=== PATIENT | female | born 1975 | race Caucasian/White ===

== ENCOUNTER 2024-01-28 11:34 | Emergency (ER) | payer OTHER, SELFPAY ==
[2024-01-28 12:05] VITALS: BP 158/88; PULSE 119; RESP 20; TEMP 36.7; O2SAT 99; BMI 21.4
--- NOTE | 2024-01-28 12:17 | EXP.UTC ---
Discharge Plan Disposition Patient Disposition: Home, Self-Care Condition: Good Prescriptions Prescriptions: New methocarbamol 500 mg tablet 500 mg PO TID PRN (Reason: muscle spasm) Qty: 15 0RF etodolac 200 mg capsule 200 mg PO Q8H PRN (Reason: pain) Qty: 20 0RF Referrals Follow up/Referrals: Alicia Conner DO [Staff Physician] - See instructions Bam Jolly MD [Staff Physician] - See instructions Claudia Ross DO [Staff Physician] - See instructions Provider,MD Isreal [Primary Care Provider] - See instructions Activity Restrictions/Add. Instructions Additional Instructions/Restrictions: *Etodolac jeanette 8 hours with meal as needed for pain/inflammation *Not additional anti-inflammatory like Ibuprofen, motrin, aleve, advil with the above amount of Etodolac. You can still take Tylenol every 4 hours as needed if you need something else for pain *moist heat every 20 minutes 3-4 times a day to affected area *Muscle relaxer every 8 hours as needed for muscle spasms but remember, it WILL cause drowsiness You cannot take it and drive, operate machinery or care for small children. *Keep this area active, no movement leads to more stiffness, However take it easy and avoid heavy lifting pushing or pulling *Follow up with you family doctor if no improvement for further treatment and testing Clinical Impressions Clinical Impression: Low back pain Instructions Patient Instructions: Low Back Pain, DI for Low Back Pain Discharge ED Provider: Marion Templeton [facility] General Stated complaint: lower back pain possible kidney pain Time Seen by Provider: 01/28/24 12:18 History of Present Illness Provider Complaint: Patient states that she has been having achy like feeling in her lower back for several days that is worse with movement States at times feels like it moves to the front and is uncomfortable states that she thought it would get better as she has had something similar before and it got better after a few days but she was worried she may have a UTI or something so she came in to get her urine checked States that she did work out over the weekend but doesnt recall hurting her back and denies loss of control of bowel or bladder Related Data Previous Rx's Medication Instructions Recorded etodolac 200 mg capsule 200 mg PO Q8H PRN pain #20 caps 01/28/24 methocarbamol 500 mg tablet 500 mg PO TID PRN muscle spasm #15 01/28/24 tabs Allergies Allergy/AdvReac Type Severity Reaction Status Date / Time No Known Allergies Allergy Verified 01/28/24 12:21 [facility] Disclaimer: The information contained in this section may have been updated after the patient was seen, as this information can be updated by other users. Surgical History (Updated 01/28/24 @ 12:21 by Sarita Bess RN) Hx of hernia repair History of tubal ligation Social History Smoking Status: Unknown if ever smoked alcohol intake: never current occupational status: employed Travel in the last 8 weeks: None ROS Obtained: Yes All systems reviewed & no additional complaints except as documented and Yes Systems reviewed as appropriate & no additional complaints except as documented Constitutional Constitutional: Reports system reviewed and no additional complaints, except as documented, Reports as per HPI, Denies body ache, Denies chills and Denies fever(s) ENT Ears, Nose, Mouth, and Throat: Reports system reviewed and no additional complaints, except as documented and Reports as per HPI Cardiovascular Cardiovascular: Reports system reviewed and no additional complaints, except as documented and Reports as per HPI Respiratory Respiratory: Reports system reviewed and no additional complaints, except as documented and Reports as per HPI Gastrointestinal Gastrointestingal: Reports system reviewed and no additional complaints, except as documented and as per HPI Genitourinary Female Genitourinary: Reports system reviewed and no additional complaints, except as documented, Reports as per HPI, Denies dysuria, Denies urinary frequency and Denies urinary urgency Musculoskeletal Musculoskeletal: Reports system reviewed and no additional complaints, except as documented, Reports as per HPI and Reports back pain (low back pain that goes into pelvis area at times with movement) Physical Exam General General appearance: alert and in no apparent distress ENT ENT exam: Present mucous membranes moist Respiratory Respiratory exam: Present normal lung sounds bilaterally; Absent respiratory distress or wheezes Cardiovascular Cardiovascular exam: Present regular rate, normal rhythm and normal heart sounds Abdominal Exam Abdominal exam: Present soft and normal bowel sounds; Absent distention or tenderness Back Exam Back exam: Present tenderness and muscle spasm Back 1 view image: 1. reports achy like feeling that is worse with movement Denies loss of control of bowel or bladder Neurological Exam Neurological exam: Present alert, oriented X3 and normal gait Medical Decision Making Jann Inquiry Pt receiving controlled substance: No Jann was queried for this patient: No Lab Data Lab results reviewed: Yes I reviewed the patient's lab results. Medical Decision Narrative: Discussed xray of Lspine and/or transfer to the ED, patient declined will start on muscle relaxers and have patient follow up with PCP and OB if pain persists
[2024-01-28 12:29] VITALS: BP 158/88; PULSE 119; RESP 20; TEMP 36.7; O2SAT 99
[2024-01-28 12:33] LABS: Apearance,Urine Clear (Clear); Color,Urine Yellow (Yellow)
[2024-01-28 12:34] LABS: Bilirubin,Urine Negative (Negative); Blood, Urine 1+ (Negative); Glucose,Urine (UA) Negative (Negative); Ketones,Urine Negative (Negative); Protein,Urine Negative (Negative); UTC Leukocyte Esterase,Urine Negative (Negative); UTC Nitrate,Urine Negative (Negative); Urobilinogen,Urine 0.2 EU/dl (0.2)
== END 2024-01-28 12:34 | disposition home or self-care (01) ==
PROVIDERS: Emergency Provider Nurse Practitioner
DX: M54.50 Low back pain, unspecified (principal)
CPT/HCPCS: 81003; 87086; 99204; 99212; G0463

== ENCOUNTER 2024-02-23 16:18 | Outpatient (CLI) | payer OTHER, SELFPAY ==
--- NOTE | 2024-02-23 16:19 | MM_ITS ---
PROCEDURE INFORMATION: Exam: Bilateral Screening 3D Mammography Exam date and time: 02/23/2024 4:06 PM Age: 48 years old Clinical indication: Screening mammogram; Additional info: Routine screening mammogram TECHNIQUE: Imaging protocol: Bilateral Screening tomosynthesis and 2D mammography including computer-aided detection (CAD) when performed. COMPARISON: 3D NOAH SCREEN BILATERAL W WO CAD 12/06/2021 2:43 PM FINDINGS: MAMMOGRAPHY: Breast composition: The breast is heterogeneously dense, which may obscure small masses. Mass: 0.8 cm mass within the upper inner right middle 1/3 should be further assessed with spot views in CC/MLO projection. Ultrasound may also be required. Architectural distortion: No new or suspicious architectural distortion. Calcifications: No new or suspicious calcifications are present Asymmetric density: No new or suspicious asymmetric density is present Skin thickening: None. Axillary adenopathy: None. Implants: Subpectoral saline augmentation implants are present. IMPRESSION: 0.8 cm mass within the upper inner right middle 1/3 should be further assessed with spot views in CC/MLO projection. Ultrasound may also be required. ASSESSMENT: BI-RADS category 0: Incomplete-need additional imaging evaluation
== END 2024-02-23 23:59 | disposition home or self-care (01) ==
LOC: RAD 16:19
PROVIDERS: PCP Obstetrics & Gynecology; Visit Provider Obstetrics & Gynecology
DX: Z12.31 Encounter for screening mammogram for malignant neoplasm of breast (principal)
CPT/HCPCS: 77063; 77067

== ENCOUNTER 2024-03-17 13:55 | Outpatient (CLI) | payer OTHER, SELFPAY ==
--- NOTE | 2024-03-17 13:58 | US_ITS ---
PROCEDURE INFORMATION: Exam: US Right Breast, Complete MG Right Diagnostic Breast Tomosynthesis Exam date and time: 03/17/2024 1:51 PM Age: 48 years old Clinical indication: Patient recalled on the basis of a screening mammogram for further evaluation; Right breast; mass TECHNIQUE: Imaging protocol: Complete ultrasound of all four quadrants of the right breast and the retroareolar regions, including ultrasound of the axilla when performed. Right Diagnostic tomosynthesis and 2D mammography including computer-aided detection (CAD) when performed. Unilateral or bilateral exam. COMPARISON: MG MM DIG SC MAMM IMPLANT BI CAD 02/23/2024 4:06 PM FINDINGS: MAMMOGRAPHY: Breast composition: The breast is heterogeneouly dense, which may obscure small masses (based on the most recent screening mammogram report). Breast mammogram findings: Digital diagnostic spot compression views of the right breast and 90 degree lateral view of the right breast demonstrate a persistent 0.8 cm ovoid mass ULTRASOUND: Breast ultrasound findings: Sonographic images of the right breast including the retroareolar region, all 4 quadrants and the axilla do not demonstrate any solid masses. Scattered cysts are present including a 0.9 cm cyst in the 2 o'clock axis 2 cm from the nipple mass present corresponding to the mass on mammography. Intact implant. Cursors were placed over normal fibroglandular structures in the 11 o'clock axis 5 cm from the nipple. No architectural distortion or acoustical shadowing. No skin thickening or axillary adenopathy. IMPRESSION: Mass on screening mammography corresponds to underlying cystic change sonographically. There is no mammographic evidence of malignancy.Annual bilateral mammographic screening is recommended unless otherwise clinically indicated. ASSESSMENT: BI-RADS Category 2: Benign.
== END 2024-03-17 23:59 | disposition home or self-care (01) ==
LOC: RAD 13:55
PROVIDERS: Visit Provider Obstetrics & Gynecology
DX: R92.8 Other abnormal and inconclusive findings on diagnostic imaging of breast (principal); Z80.3 Family history of malignant neoplasm of breast; N63.0 Unspecified lump in unspecified breast
CPT/HCPCS: 76641; 77061; 77065; G0279

== ENCOUNTER 2024-05-04 16:21 | Emergency (ER) | payer OTHER, SELFPAY ==
[2024-05-04 16:30] VITALS: BP 137/92; PULSE 70; RESP 18; TEMP 36.6; O2SAT 99; BMI 20.9
--- NOTE | 2024-05-04 16:32 | EXP.UTC ---
Discharge Plan Disposition Patient Disposition: Home, Self-Care Condition: Good Prescriptions Prescriptions: New ibuprofen 600 mg tablet 600 mg PO Q6HP PRN (Reason: Mild Pain) Qty: 30 0RF Referrals Follow up/Referrals: Provider,Referral, MD [Primary Care Provider] - See instructions Tejal Miranda DPM [Staff Physician] - See instructions Activity Restrictions/Add. Instructions Additional Instructions/Restrictions: Rest the extremity, Elevate the extremity as tolerated while you are resting. Take tylenol or ibuprofen for pain. I sent in a prescription to your pharmacy. Follow up with Dr. Miranda (podiatry). I put in a referral but you need to call her office and schedule an appointment. Follow up with your regular doctor. GO TO THE ER FOR ANY WORSENING SYMPTOMS Clinical Impressions Clinical Impression: Left foot pain, Ganglion cyst of left foot Instructions Patient Instructions: DI Ganglion Cyst Discharge ED Provider: [place] Brew[place] [facility] [place] General Stated complaint: LT foot pain Time Seen by Provider: 05/04/24 16:32 History of Present Illness Provider Complaint: She states that she has been having worsening pain in the arch of her left foot for the past 1 week. She denies any injury. She states that she has a lump at the area where she has the pain. She came in today because she doesn't have a pcp and she needs a referral to podiatry. Related Data Previous Rx's Medication Instructions Recorded ibuprofen 600 mg tablet 600 mg PO Q6HP PRN Mild Pain #30 05/04/24 tabs Allergies Allergy/AdvReac Type Severity Reaction Status Date / Time No Known Allergies Allergy Verified 05/04/24 16:34 [facility] Disclaimer: The information contained in this section may have been updated after the patient was seen, as this information can be updated by other users. Medical History (Updated 05/04/24 @ 16:56 by Brandon Brewer APRN) Family history of breast cancer in first degree relative Bone spur Surgical History Hx of hernia repair History of tubal ligation Family History Other Alcoholism Cancer Diabetes Heart attack Hyperlipidemia Hypertension Kidney disease Social History Smoking Status: Never smoker alcohol intake: current substance use type: denies use current occupational status: employed Travel in the last 8 weeks: None ROS Obtained: Yes All systems reviewed & no additional complaints except as documented Constitutional Constitutional: Denies chills and Denies fever(s) Eyes Eyes: Denies eye discharge ENT Ears, Nose, Mouth, and Throat: Denies dizziness, Denies otalgia and Denies sore throat Cardiovascular Cardiovascular: Denies chest pain Respiratory Respiratory: Denies shortness of breath, Denies chest congestion, Denies cough, Denies stridor and Denies wheezing Gastrointestinal Gastrointestingal: Denies nausea or vomiting Musculoskeletal Musculoskeletal: Reports as per HPI Integumentary/Breasts Skin/Breast: Denies rash Neurologic Neurologic: Denies dizziness and Denies paresthesias Allergic/Immunologic Allergic/Immunologic: Denies wheezing Physical Exam General General appearance: alert and in no apparent distress Head Head exam: atraumatic, normocephalic and normal inspection Eye Eye exam: Present normal appearance, PERRL and EOMI ENT ENT exam: Present normal exam, normal oropharynx, mucous membranes moist, TM's normal bilaterally and normal external ear exam Neck Neck exam: Present normal inspection, full ROM and trachea midline; Absent meningismus or lymphadenopathy Chest Chest inspection: Present normal inspection and symmetric chest wall rise; Absent tenderness Respiratory Respiratory exam: Present normal lung sounds bilaterally; Absent respiratory distress Cardiovascular Cardiovascular exam: Present regular rate and normal rhythm; Absent JVD Abdominal Exam Abdominal exam: Present soft and normal bowel sounds; Absent distention, tenderness or guarding Extremities Exam Extremities exam: Present normal capillary refill; Absent calf tenderness Expanded Lower Extremity Exam Left: Ankle exam: Present normal inspection and full ROM; Absent tenderness, tenderness over talofibular lig or anterior draw sign Foot/toe exam: Present full ROM and tenderness; Absent swelling, abrasion, laceration, ecchymosis, deformity, crepitus, dislocation, erythema, amputation, puncture wound, foreign body, calcaneal tenderness, tenderness at base of 5th metatarsal, nail avulsion or subungual hematoma Neurovascular/Tendon exam: Present normal capillary refill, normal 2-point discrimination and normal fine/light touch; Absent pulse deficit, motor deficit, sensory deficit, tendon deficit, extremity cold to touch or pallor Gait: observed and normal Back Exam Back exam: Present normal inspection; Absent tenderness Neurological Exam Neurological exam: Present alert and oriented X3 Psychiatric Psychiatric exam: Present normal affect and normal mood Skin Skin exam: Present warm, dry, intact and normal color Lymphatic Lymphatic Findings: no adenopathy Medical Decision Making Medical Records Medical records reviewed: No I reviewed the patient's medical records. Jann Inquiry Pt receiving controlled substance: No
[2024-05-04 16:59] VITALS: BP 137/92; PULSE 70; RESP 18; TEMP 36.6; O2SAT 99
== END 2024-05-04 16:59 | disposition home or self-care (01) ==
PROVIDERS: Emergency Provider Nurse Practitioner Family
DX: M79.672 Pain in left foot (principal); M67.472 Ganglion, left ankle and foot
CPT/HCPCS: 99212; 99214; G0463

== ENCOUNTER 2024-05-26 16:16 | Outpatient (CLI) | payer OTHER, SELFPAY ==
--- NOTE | 2024-05-26 16:21 | XR_ITS ---
FINAL REPORT CLINICAL HISTORY: foot pain COMPARISON: None FINDINGS: RIGHT FOOT 3 views of the right foot were obtained. There is no acute fracture or dislocation. There is mild degenerative change of the 1st MTP joint.. Soft tissues are unremarkable. IMPRESSION: Mild degenerative change without acute bony abnormality. Reviewed, Interpreted and Dictated by Jeff Hammond III, MD Transcribed by Tiara Shi Authenticated and [facility]
--- NOTE | 2024-05-26 16:21 | XR_ITS ---
FINAL REPORT CLINICAL HISTORY: ganglion cyst/foot pain COMPARISON: None FINDINGS: LEFT FOOT Three views of the left foot demonstrate no acute fracture or dislocation. There is mild degenerative change of the 1st MTP joint. The soft tissues are unremarkable. IMPRESSION: Mild degenerative change without acute bony abnormality. Reviewed, Interpreted and Dictated by Jeff Hammond III, MD Transcribed by Tiara Shi Authenticated and . [facility]
== END 2024-05-26 23:59 | disposition home or self-care (01) ==
LOC: RAD 16:18
DX: M79.671 Pain in right foot (principal)
CPT/HCPCS: 73630

== ENCOUNTER 2024-06-22 16:55 | Outpatient (CLI) | payer OTHER, SELFPAY ==
--- NOTE | 2024-06-22 17:04 | MR_ITS ---
PROCEDURE INFORMATION: Exam: MR Left Lower Extremity Other Than Joint Without and With Contrast; Foot Exam date and time: 06/22/2024 5:09 PM Age: 48 years old Clinical indication: Other: St mass; Additional info: Cyst/ soft tissue mass of left foot marked with marker TECHNIQUE: Imaging protocol: Magnetic resonance imaging of the left lower extremity without and with contrast. Exam focused on the foot. Contrast material: PROHACNE; Contrast volume: 10 ml; Contrast route: IV; COMPARISON: CR XR FOOT WT BEARING LT 3V 05/26/2024 4:22 PM FINDINGS: Bones/joints: Small amount of joint fluid as well as 8 mm synovial cyst noted at the 1st metatarsophalangeal joint. No significant arthritic changes. Osseous alignment is normal. No focal osseous lesion identified. LIGAMENTS: Lisfranc ligament: Unremarkable. No evidence of tear. TENDONS: Flexor tendons of foot: Unremarkable. No evidence of tear. Tibialis posterior tendon: Unremarkable as visualized. Peroneal tendons: Unremarkable as visualized. Extensor tendons of foot: Unremarkable. No evidence of tear. Tibialis anterior tendon: Unremarkable as visualized. Tarsal canal (Sinus tarsi): Unremarkable. Tarsal tunnel: Unremarkable. Soft tissues: Unremarkable. Specifically, no abnormality seen in the area indicated by the marker in the arch of the foot. Plantar fascia: Unremarkable as visualized. IMPRESSION: Small amount of joint fluid and small synovial cyst noted in the 1st metatarsophalangeal joint without significant arthritic change. Otherwise unremarkable MRI of the left foot.
== END 2024-06-22 23:59 | disposition home or self-care (01) ==
LOC: RAD 16:57
PROVIDERS: Visit Provider Podiatrist
DX: R22.42 Localized swelling, mass and lump, left lower limb (principal); M67.472 Ganglion, left ankle and foot; M79.672 Pain in left foot
CPT/HCPCS: 73720; A9576

== ENCOUNTER 2024-07-06 16:53 | Outpatient (CLI) | payer OTHER, SELFPAY ==
[2024-07-06 17:18] LABS: Basophils # 0.1 K/mm3 (0-0.2); Basophils % 0.8 % (0.1-2.0); Eosinophils % 0.6 % (0.1-12.0); Hematocrit 39.2 % (37.0-47.0); Hemoglobin 12.6 g/dL (12.2-16.2); Lymphocytes # 1.9 K/mm3 (0.7-4.5); Lymphocytes % 27.2 % (10-50); Mean Corpuscular HGB Conc 32.1 g/dL (31.8-35.4); Mean Corpuscular Hemoglobin 31.3 pg (27.0-31.2); Mean Corpuscular Volume 97.5 fl (81-99); Mean Platelet Volume 7.5 fl (7.4-10.4); Monocytes # 0.3 K/mm3 (0.1-1.0); Monocytes % 4.5 % (1.7-9.3); Neutrophils # 4.6 K/mm3 (1.8-7.8); Neutrophils % 66.9 % (37.0-80.0); Platelet Count 375 K/mm3 (142-424); Red Blood Count 4.02 M/mm3 (4.20-5.40); Red Cell Distribution Width 13.8 % (11.5-17.5); White Blood Count 6.8 K/mm3 (4.8-10.8)
[2024-07-06 17:48] LABS: Albumin Level 4.8 g/dl (3.5-5.0); Chloride 106 mmol/L (98-107); Potassium 4.2 mmoL/L (3.5-5.1); Sodium 139 mmol/L (136-145)
[2024-07-06 17:51] LABS: Alanine Aminotransferase 22 U/L (12-78); Albumin/Globulin Ratio 1.7 (1.1-1.8); Alkaline Phosphatase 59 U/L (38-126); Anion Gap 9.2 mEq/L (5-15); Aspartate Amino Transferase 33 U/L (14-36); Bilirubin,Total 0.7 mg/dl (0.2-1.3); Blood Urea Nitrogen 21 mg/dl (7-17); Calcium 9.5 mg/dl (8.4-10.2); Carbon Dioxide 28 mmol/L (22.0-30.0); Estimated Glomerular Filt Rate 76 ml/min (>60); GFR (African American) 92 ML/MIN (>60); Globulin 2.9 g/dL (1.3-3.2); Glucose 102 mg/dl (74-100); Total Protein,Serum 7.7 g/dl (6.3-8.2)
[2024-07-18 06:43] LABS: 1,25 Dihydroxy Vitamin D 41 pg/mL (.); 1,25-Dihydroxy, Vitamin D-2 <10 pg/mL (.); 1,25-Dihydroxy, Vitamin D-3 40 pg/mL (.)
== END 2024-07-06 23:59 | disposition home or self-care (01) ==
LOC: LAB 16:54
PROVIDERS: Visit Provider Podiatrist
DX: Z01.818 Encounter for other preprocedural examination (principal); M79.672 Pain in left foot
CPT/HCPCS: 80053; 82652; 85025

== ENCOUNTER 2024-07-15 13:46 | Outpatient (CLI) | payer OTHER, SELFPAY ==
--- NOTE | 2024-07-15 13:48 | ECG_ITS ---
APPROVED REPORT Exam: Resting ECG HR:92 bpm ECG Measurements Heart Rate 92 AXES RI 178 P 52 QRSd 67 QRS 18 QT 336 T 70 QTc 385 Conclusion SINUS RHYTHM WITH SINUS ARRHYTHMIA NONSPECIFIC ST & T-WAVE ABNORMALITY BORDERLINE ECG UNCONFIRMED REPORT Electronically signed by : Chema Landa MD 07/17/2024 08:48:04
== END 2024-07-15 23:59 | disposition home or self-care (01) ==
LOC: RT 13:48
PROVIDERS: Visit Provider Podiatrist
DX: Z01.818 Encounter for other preprocedural examination (principal)
CPT/HCPCS: 93005

== ENCOUNTER 2024-07-21 09:50 | Outpatient (CLI) | payer OTHER, SELFPAY ==
[2024-07-21 10:10] LABS: Basophils # 0.1 K/mm3 (0-0.2); Basophils % 1.2 % (0.1-2.0); Eosinophils # 0.1 K/mm3 (0.0-0.4); Eosinophils % 1.8 % (0.1-12.0); Hemoglobin 13.7 g/dL (12.2-16.2); Lymphocytes % 28.2 % (10-50); Mean Corpuscular HGB Conc 32.6 g/dL (31.8-35.4); Mean Corpuscular Hemoglobin 31.4 pg (27.0-31.2); Mean Corpuscular Volume 96.5 fl (81-99); Mean Platelet Volume 7.6 fl (7.4-10.4); Monocytes # 0.3 K/mm3 (0.1-1.0); Monocytes % 4.5 % (1.7-9.3); Neutrophils # 4.5 K/mm3 (1.8-7.8); Neutrophils % 64.3 % (37.0-80.0); Platelet Count 425 K/mm3 (142-424); Red Blood Count 4.36 M/mm3 (4.20-5.40); Red Cell Distribution Width 13.6 % (11.5-17.5); White Blood Count 7.1 K/mm3 (4.8-10.8)
[2024-07-21 11:33] LABS: Albumin Level 5.1 g/dl (3.5-5.0); Chloride 102 mmol/L (98-107)
[2024-07-21 11:34] LABS: Potassium 4.3 mmoL/L (3.5-5.1); Sodium 138 mmol/L (136-145)
[2024-07-21 11:36] LABS: Alanine Aminotransferase 25 U/L (12-78); Anion Gap 12.3 mEq/L (5-15); Aspartate Amino Transferase 34 U/L (14-36); Bilirubin,Unconjugated 0.6 mg/dL (0.0-1.1); Blood Urea Nitrogen 20 mg/dl (7-17); Carbon Dioxide 28 mmol/L (22.0-30.0); Cholesterol 246 mg/dl (140-200); Estimated Glomerular Filt Rate 76 ml/min (>60); GFR (African American) 92 ML/MIN (>60); Total Protein,Serum 8.2 g/dl (6.3-8.2); Triglycerides 57 mg/dl (30-150); VLDL Cholesterol 11 mg/dL (0-40)
[2024-07-21 11:37] LABS: Alkaline Phosphatase 59 U/L (38-126); Bilirubin,Direct 0.3 mg/dl (0.0-0.4); Bilirubin,Indirect 0.6 mg/dL (0.0-0.9); Bilirubin,Total 0.9 mg/dl (0.2-1.3); Calcium 10.1 mg/dl (8.4-10.2); Chol/HDL Ratio 2.4 (1-3.5); Glucose 116 mg/dl (74-100); HDL Cholesterol 103 mg/dl (40-60)
[2024-07-21 11:48] LABS: Direct LDL Cholesterol 99.44 mg/dL (100-129)
[2024-07-21 11:52] LABS: Free T4 (Free Thyroxine) 1.18 ng/dl (0.78-2.19)
[2024-07-21 12:08] LABS: Thyroid Stimulating Hormone 0.97 uIU/mL (0.465-4.68)
== END 2024-07-21 23:59 | disposition home or self-care (01) ==
LOC: LAB 09:51
PROVIDERS: Visit Provider Nurse Practitioner Family
DX: R93.1 Abnormal findings on diagnostic imaging of heart and coronary circulation (principal); R94.39 Abnormal result of other cardiovascular function study; Z01.810 Encounter for preprocedural cardiovascular examination; R94.31 Abnormal electrocardiogram [ECG] [EKG]; K21.9 Gastro-esophageal reflux disease without esophagitis; R00.0 Tachycardia, unspecified; I42.8 Other cardiomyopathies; R06.00 Dyspnea, unspecified
CPT/HCPCS: 36415; 80048; 80061; 80076; 84439; 84443; 85025

== ENCOUNTER 2024-07-23 07:14 | Day surgery (SDC) | payer OTHER, SELFPAY ==
[2024-07-23] VITALS (9 sets, daily range): BP systolic 93–129; BP diastolic 62–86; PULSE 65–99; RESP 18–20; O2SAT 96–100; BMI 20.6
--- NOTE | 2024-07-23 06:51 | IR_ITS ---
APPROVED REPORT Patient Location: Outpatient Tail Ripper: TAMERA [facility] RT (R) PROCEDURES Left heart catheterization Left ventriculogram Selective coronary angiogram INDICATION High risk abnormal Myoview Informed consent was obtained prior to the procedure. COMPLICATIONS NONE Estimated Blood Loss: LESS THAN 10 ML TECHNIQUE One percent lidocaine used to anesthetize the right anterior aspect of the wrist. The right radial artery was accessed via the Seldinger technique. A 6 Mont[place]grin sheath was placed in the right radial artery. 2.5 mg of Verapamil, 800 mcg of nitroglycerin, 1mg Lidocaine and 5000 U Heparin were given through the arterial sheath. The papa catheter was also used to perform left heart catheterization, left ventriculogram and selective coronary angiogram. At the end of the procedure the sheath was removed good hemostasis was achieved using Traclet band, patient was transferred to the postop holding area in stable condition. ANGIOGRAPHIC RESULTS The left anterior descending artery Originates in the left coronary cusp and is angiographically normal The circumflex artery Originates in the left coronary cusp is large caliber and normal The right coronary artery Originates in the right coronary cusp is a large-caliber dominant and normal The WISDOM ventriculogram reveals Slight left ventricular dilatation with globally hypokinetic ejection fraction estimated at 40 to 45% The left ventricular end-diastolic pressure 20 mmHg IMPRESSION Normal coronary arteries as described above Unusual calcification within the cardiac silhouette suggesting possible pericardial calcification or unusual coronary sinus calcification Dilated ventricle with reduced ejection fraction Borderline elevated LVEDP PLAN 1. Recommend cardiac MRI with possible CCTA to better evaluate reduced ejection fraction and unusual calcification which could suggest constrictive pericarditis or other pericardial disease Electronically signed by : Artie Santos MD 07/23/2024 08:37:11
[2024-07-23] MEDS: FENTANYL 100MCG/2ML VIAL 50 MCG IV (08:01)
[2024-07-23] MEDS: LIDOCAINE 1% 10ML MDV 20 ML IJ (08:02)
[2024-07-23] MEDS: HEPARIN 1,000 UNITS/ML 10ML VIAL (CATH LAB) 10000 UNIT IV (08:02)
[2024-07-23] MEDS: VERAPAMIL 2.5MG/ML 2ML VIAL 2.5 MG IV (08:02)
[2024-07-23] MEDS: 0.9 % SODIUM CHLORIDE 500 ML 25 ML IV (08:04)
[2024-07-23] MEDS: diphenhydrAMINE 50MG/ML VIAL 50 MG IV (08:04)
[2024-07-23] MEDS: HEPARIN 1,000 UNITS/500ML NS (CATH LAB) 3000 UNIT IV (08:05)
== END 2024-07-23 10:45 | disposition home or self-care (01) ==
PROVIDERS: Visit Provider Internal Medicine
DX: I42.8 Other cardiomyopathies (principal); R93.1 Abnormal findings on diagnostic imaging of heart and coronary circulation; R94.39 Abnormal result of other cardiovascular function study; R94.31 Abnormal electrocardiogram [ECG] [EKG]
CPT/HCPCS: 93458; 99152; C1725; C1769; J1200; J1644; J3010

== ENCOUNTER 2024-08-11 09:57 | Outpatient (CLI) | payer OTHER, SELFPAY ==
--- NOTE | 2024-08-11 09:57 | MR_ITS ---
APPROVED REPORT Edge Grinder Machine: CLINICAL INDICATION Evaluation for myocardial or pericardial masses, possible calcified mass noted on [facility] TECHNIQUE Image Acquisition: Cardiac magnetic resonance (CMR) was performed on Siemens Espree MRI 1.5T scanner. Software platform sequences were performed using the Siemens TinyTapo MR B19 platform. A set of three-plane, low-resolution, large [id number] localizers were initially acquired. Then axial, coronal, sagittal TrueFISP, as well as axial HASTE images, were obtained. These were followed by gated TrueFISP breathold cinematic sequences obtained in the short axis with 8 mm slices and 2 mm gaps, 2-chamber (vertical long axis), 3-chamber, 4-chamber (horizontal long axis). A bolus of contrast was injected intravenously with first-pass sequences obtained in the short axis and four-chamber planes. After approximately 10 minutes, a TI cnc mechanic sequence was performed to determine the optimal TI time. Using the optimized TI time, delayed contrast enhancement segmented inversion???recovery TurboFLASH sequences were obtained in the short axis, 2-chamber, 3-chamber, and 4-chamber projections. 2D-velocity phase mapping was performed. Functional parameters were calculated by offline analysis on an independent workstation ([employer] Platform, [facility]). Contrast: ProHance??? (Gadoteridol) FINDINGS MORPHOLOGY AND FUNCTION Left ventricle: The left ventricle is normal in size. The indexed left ventricular end-diastolic volume (LVEDVi) is 93 ml/m2 (reference range 57-105 ml/m2 in males, 56-96 ml/m2 in females). Normal left ventricular systolic function is present. There is normal left ventricular wall thickness. There are no regional wall motion abnormalities noted. No evidence of myocardial masses. LVEF is calculated at 60.7% (reference range 57-77%). Right ventricle: The right ventricle is normal in size. The indexed right ventricular end-diastolic volume (RVEDVi) is 70 ml/m2 (reference range 61-121 ml/m2 in males, 48-112 ml/m2 in females). Normal right ventricular systolic function is present. RVEF is calculated at 66.2% (reference range 52-72% in males, 51-71% in females). Atria: The left atrium is normal in size. The maximum indexed left atrial volume is 23 ml/m2 (reference range 26-52 ml/m2 in males, 27-53 ml/m2 in females). The right atrium is normal in size. The maximum indexed right atrial volume is 24 ml/m2 (reference range 18-90 ml/m2). Aorta: The diameter of the aortic annulus is normal, measuring 27 mm (coronal view reference range 21-30 mm in males, 19-27 mm in females). The diameter of the aortic sinus is normal, measuring 30 mm (coronal view reference range 25-42 mm in males, 24-36 mm in females). The diameter of the sinotubular junction is normal, measuring 28 mm (coronal view reference range 18-32 mm in males, 18-28 mm in females). The diameters of the ascending and descending thoracic aorta are normal. Main pulmonary artery: The main pulmonary artery diameter is normal. Pericardium: The pericardial thickness is normal. The pericardial thickness measures 1.8 mm (normal < 4.0 mm). There is no pericardial effusion. No evidence of pericardial masses. VALVES Mild bileaflet MV prolapse is present. 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 The distance from the MV annulus to the LV myocardial wall is measured at approximately 3 mm. Mild mitral regurgitation is present. The MR jet is centrally directed. Systolic anterior motion of the mitral valve is not visualized. Ratio of pulmonary to systemic flow, Qp:Qs ratio = 1.07 (normal < or = 1.2, hemodynamically significant shunt > 1.5), demonstrating no evidence of hemodynamically significant shunt. TISSUE CHARACTERIZATION Resting Perfusion: Normal myocardial blood flow at rest. No evidence of resting hypoperfusion. Myocardial Fibrosis and/or edema: Normal gadolinium kinetics are present. No evidence of late gadolinium enhancement is noted, consistent with absence of myocardial scarring, infarction, or necrosis. T2-weighted imaging demonstrates no evidence of myocardial edema or inflammation. OTHER Bilateral breast implants are incidentally noted. IMPRESSION Normal LV size with normal LV systolic function. LVEDVi= 93 ml/m2 and LVEF= 60.7%. Normal RV size with normal RV systolic function. RVEDVi= 70 ml/m2 and RVEF= 66.2%. No atrial enlargement. No evidence of myocardial or pericardial masses. No CMR evidence of myocardial scarring, infarction, or necrosis. No evidence of myocardial edema or inflammation. Perfusion analysis demonstrates normal blood flow at rest with no evidence of resting hypoperfusion. Mild bileaflet MV prolapse is present. 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 The distance from the MV annulus to the LV myocardial wall is measured at approximately 3 mm. Mild mitral regurgitation is present. The MR jet is centrally directed. Ratio of pulmonary to systemic flow, Qp:Qs ratio = 1.07 (normal < or = 1.2, hemodynamically significant shunt > 1.5), demonstrating no evidence of hemodynamically significant shunt. This CMR demonstrates normal biventricular systolic function. No evidence of myocardial or pericardial masses. No evidence of pericardial thickening or constrictive pericarditis. Further evaluation of the calcified mass noted on LHC is suggested with either chest or cardiac CTA, as CT is helpful for overall evaluation of calcification. In the setting of mild bileaflet prolapse and associated 3mm mitral annular disjunction (MAD), further evaluation with cardiac monitoring is suggested to rule out arrhythmias (MAD may be associated with arrhythmias). COMPARISON None CRITICAL RESULT None COMMUNICATION The above findings were communicated with the patient at the time of her routine outpatient clinic visit following the acquisition of the study images. The findings of this cardiac MR were reviewed, reported, and signed by Kirit Siddiqi MD (Propeller Tester). Conclusion Electronically signed by : Roya Siddiqi MD 08/16/2024 01:06:54
[2024-08-11] MEDS: SODIUM CHLORIDE 0.9% 10ML SYR (RAD ONLY) 10 ML IV (10:54)
[2024-08-11] MEDS: 0.9 % SODIUM CHLORIDE 50 ML VIAL 20 ML IV (10:54)
[2024-08-11] MEDS: GADOTERIDOL INJ 20ML SYRINGE 14 ML IV (10:54)
== END 2024-08-11 23:59 | disposition home or self-care (01) ==
LOC: RAD 09:57
PROVIDERS: PCP Internal Medicine; Visit Provider Internal Medicine
DX: I42.8 Other cardiomyopathies (principal)
CPT/HCPCS: 75561; A9576

== ENCOUNTER 2024-08-16 13:56 | Outpatient (CLI) | payer OTHER, SELFPAY | END 2024-08-16 23:59 | disposition home or self-care (01) | LOC: RT 13:57 | PROVIDERS: Visit Provider Internal Medicine | DX: R00.2 Palpitations (principal); I34.1 Nonrheumatic mitral (valve) prolapse; I31.8 Other specified diseases of pericardium | CPT/HCPCS: 93270 ==

== ENCOUNTER 2024-08-24 06:57 | Outpatient (CLI) | payer OTHER, SELFPAY ==
--- NOTE | 2024-08-24 07:00 | CT_ITS ---
FINAL REPORT TECHNIQUE: Axial CT images were performed from the lung apices through the upper abdomen. Coronal and sagittal reformats were submitted. This study was performed with techniques to keep radiation doses as low as reasonably achievable (ALARA). Individualized dose reduction techniques using automated exposure control or adjustment of mA and/or kV according to the patient's size were employed. CLINICAL HISTORY: calcification mass COMPARISON: None FINDINGS: There is no axillary adenopathy. Calcified hilar and subcarinal nodes are present, not significantly enlarged. Heart size is normal. There is no pericardial or pleural effusion. Limited images of the upper abdomen are unremarkable. Biapical pleural scar is present. There is a nodule in the posterior right lower lobe, best seen on image 140 of series 3, measuring 4 mm in size. IMPRESSION: Right lower lobe posterior nodule, 4 mm in size, as described above. Per Fleischner criteria, 1 year follow-up chest CT is suggested for further evaluation. Reviewed, Interpreted and Dictated by Román Villanueva MD Transcribed by Tammie Bolden Authenticated and [facility]
== END 2024-08-24 23:59 | disposition home or self-care (01) ==
LOC: RAD 06:58
PROVIDERS: Visit Provider Internal Medicine
DX: I31.8 Other specified diseases of pericardium (principal)
CPT/HCPCS: 71250

== ENCOUNTER 2024-11-03 12:03 | Outpatient (CLI) | payer OTHER, SELFPAY ==
[2024-11-03 12:16] VITALS: BMI 20.5
[2024-11-03 12:45] LABS: Basophils # 0.1 K/mm3 (0-0.2); Basophils % 1.3 % (0.1-2.0); Eosinophils # 0.1 K/mm3 (0.0-0.4); Hematocrit 37.6 % (37.0-47.0); Hemoglobin 12.7 g/dL (12.2-16.2); Lymphocytes # 1.9 K/mm3 (0.7-4.5); Lymphocytes % 35.4 % (10-50); Mean Corpuscular HGB Conc 33.7 g/dL (31.8-35.4); Mean Corpuscular Hemoglobin 31.5 pg (27.0-31.2); Mean Corpuscular Volume 93.4 fl (81-99); Mean Platelet Volume 6.9 fl (7.4-10.4); Monocytes # 0.3 K/mm3 (0.1-1.0); Monocytes % 4.7 % (1.7-9.3); Neutrophils # 3.1 K/mm3 (1.8-7.8); Neutrophils % 57.5 % (37.0-80.0); Platelet Count 332 K/mm3 (142-424); Red Blood Count 4.03 M/mm3 (4.20-5.40); Red Cell Distribution Width 13.4 % (11.5-17.5); White Blood Count 5.3 K/mm3 (4.8-10.8)
[2024-11-03 13:00] LABS: Chloride 102 mmol/L (98-107)
[2024-11-03 13:01] LABS: Sodium 134 mmol/L (136-145)
[2024-11-03 13:03] LABS: Blood Urea Nitrogen 20 mg/dl (7-17); Creatinine Clearance Estimated 67 mL/min (50-200); Estimated Glomerular Filt Rate 66 ml/min (>60); GFR (African American) 80 ML/MIN (>60)
[2024-11-03 13:04] LABS: Calcium 10.1 mg/dl (8.4-10.2); Carbon Dioxide 30 mmol/L (22.0-30.0); Glucose 153 mg/dl (74-100)
[2024-11-03 13:42] LABS: HCG Qualitative, Serum Negative (Negative)
== END 2024-11-03 23:59 | disposition home or self-care (01) ==
LOC: PREOP 12:04
PROVIDERS: Nurse Anesthetist, Certified Registered; Visit Provider Podiatrist
DX: Z01.812 Encounter for preprocedural laboratory examination (principal); Z13.1 Encounter for screening for diabetes mellitus
CPT/HCPCS: 80048; 83036; 84703; 85025

== ENCOUNTER 2024-11-10 08:04 | Day surgery (SDC) | payer OTHER, SELFPAY ==
[2024-11-10] VITALS (10 sets, daily range): BP systolic 121–146; BP diastolic 79–93; PULSE 91–130; RESP 16–22; TEMP 36.6–43; O2SAT 97–100; BMI 20.5
[2024-11-10] MEDS: SCOPOLAMINE 1.5MG/72HRS PATCH 1 EACH TD (08:46)
[2024-11-10] MEDS: LACTATED RINGERS 1000ML 1,000 ML 25 ML IV (08:49)
--- NOTE | 2024-11-10 09:44 | EXP.ANES.CKL ---
[facility] Disclaimer: The information contained in this section may have been updated after the patient was seen, as this information can be updated by other users. Medical History Mitral prolapse Palpitations Pericardial calcification HFrEF (heart failure with reduced ejection fraction) Abnormal cardiovascular stress test Abnormal echocardiogram Cardiomyopathy Sinus tachycardia Hyperlipidemia Pre-operative cardiovascular examination Abnormal electrocardiogram [ECG] [EKG] Hypertension affecting Family history of breast cancer in first degree relative mother diagnosed at age 49 Bone spur left shoulder Surgical History History of cardiac cath Hx of hernia repair History of tubal ligation Family History Other Alcoholism Cancer Diabetes Heart attack Hyperlipidemia Hypertension Kidney disease Social History Smoking Status: Never smoker alcohol intake: never substance use type: denies use current occupational status: employed Travel in the last 8 weeks: Inside the [place] Have you lived/traveled outside US in past 30 days?: No Contact w/someone who lives/traveled outside US past 30 days?: No Exposure to someone with infectious disease in past 14 days?: No Do you have a fever (greater than 100.4 F or 38 C)?: No Have you tested positive for COVID-19: No Exposed to someone with COVID-19 in past 14 days?: No Do you have a sore throat?: No Do you have a cough?: No Do you have any weakness?: No Do you have any diarrhea?: No Are you experiencing any unusual bleeding?: No Do you have any muscle aches/pain?: No Do you have any abdominal pain?: No Are you experiencing loss of taste or smell?: No [facility] Anesthesia Checklist Patient Identification Patient Identification: Arm Band Structural Data Admitted From: Home Planned Operative Procedure/s: Left Foot Andrew Bunionectomy, Soft Tissue Mass Removal Consent for Planned Operative Procedure(s) Verified: Yes Verified Documents: Surgical Consent and History and Physical NPO Status Verified Time NPO: 00:00 Additional verifications Anesthesia Reactions: Yes (nausea/vomitting) Hx Blood Transfusions: No Blood Transfusion Reaction: No Airway Assessment Mallampati Score:: Class II C-Spine Mobility Assessed: Yes TMJ Mobility Assessed: Yes Dentition: Good Dentition Neurological Assessment Level of Consciousness: Awake, Alert and Appropriate Anesthesia Plan Anesthesia Risk discussed: Yes Anesthesia Plan: Verified ASA Class: II Anesthesia Type: General w/block (Left Popliteal/Adductor Canal Nerve Block. Risks/benefits explained. Pt verbalized understanding)
--- NOTE | 2024-11-10 11:22 | XR_ITS ---
FINAL REPORT CLINICAL HISTORY: BUNIONECTOMY FOOT IN OR 1.2 min 0.00 mGy/ min 1.84 mGy COMPARISON: 05/26/2024 FINDINGS: Left foot Three views were obtained. There are postoperative changes from bunionectomy and osteotomy. Cortical plate is in place. Osteotomy site is displaced up to 9 mm. Remaining osseous structures are intact. IMPRESSION: Postoperative changes from bunionectomy and osteotomy. Reviewed, Interpreted and Dictated by Dina Martinez MD Transcribed by Katalina Maldonado Authenticated and [facility]
--- NOTE | 2024-11-10 11:37 | P.OP_ITS ---
Date of procedure: 11/10/24 Pre-op Diagnosis:: Left foot hallux valgus Plantar fibroma/soft tissue mass Post-op Diagnosis:: Same Procedure performed:: Left bunionectomy (DMO) w/ modified Gabriel excision of synovial cyst/synovectomy capsule/tendon soft tissue mass/tumor excision plantar left foot (subfascial/intramuscular) Surgeon:: Tejal iMranda DPM FACILITY OPERATIONS MANAGER:: Brandon Alvarenga Anesthesia: GETA and regional (L pop nerve block) Estimated blood loss (mL): 20 Clinical Note:: Patient is a 48-year-old female who presents with continued and worsening left foot bunion pain and a soft tissue mass to the medial plantar arch. Recent x- rays and left foot MRI shows first MPJ synovial cyst with synovitis. MRI: sagittal series 8, images 7-10 there is thickening of plantar muscle just distal to skin marker. Sub 1st MTPJ soft tissue swelling and plantar capsule thickening. The patient has tried modification of shoe gear, modification of activity, toe spacers, taping, strapping, inserts, ice elevation, NSAIDs. After a long discussion with the patient in regards to the conservative versus surgical treatment for the bunion deformity, the patient has elected to proceed with surgery because they have failed conservative treatment and continue to have pain and worsening symptoms affecting daily activities. The patient has been instructed on the planned procedure including MIS (minimally invasive surgery) for the bunionectomy, synovectomy/excision of synovial cyst, soft tissue mass removal. Patient is nondiabetic and is a non-smoker. All risk versus benefits of the procedure to include bleeding, infection, nerve and blood vessel damage, need for further surgery, delay in healing of soft tissue or bone, failure of bones to heal, non-union, mal-union, prolonged pain and recovery, prolonged swelling, progression/recurrence of bunion, arthritis, CRPS/RSD, DVT/PE and anesthetic complications including . No guarantees were given. All questions fully answered. The patient verbalized understanding and agreed to proceed with surgery. Written consent was obtained. Necessary labs and pre-op testing ordered: CBC, CMP, vit D, EKG. EKG abnormal, had cardiac workup. eRx for Bethesda 7.5/325, Zofran, Motrin 800mg, Gabapentin. Patient has crutches and short fracture boot. Recommend rolling knee scooter. Operative findings:: Left foot soft tissue mass noted at the plantar medial aspect along the plantar fascia. Soft tissue mass consistent with plantar fibroma measuring about 1.8 cm round. Left hallux valgus noted with dorsal medial eminence. Bone was firm and normal texture and color. There is some synovitis and synovial cyst located to the lateral aspect of the first MTPJ. No signs of infection. Operative note:: On this date and time, patient was deemed an appropriate surgical candidate. With informed consent signed, the patient was taken to the operating theater after preop regional nerve block. The patient was positioned supine. General anesthesia induced. Tourniquet was applied to the left thigh. The left lower extremity was prepped and draped in normal sterile fashion. IV Ancef given. Left foot bunionectomy (distal metatarsal osteotomy): Attention directed to the first MTPJ where a mild to moderate bunion and dorsal medial eminence noted. Small stab incision made proximal to the metatarsal head. Blunt dissection around the metatarsal. Utilizing a power saw chevron osteotomy performed. Minimally invasive guide applied in accordance with manufacture guidelines and standard technique. Bunion was reduced and temporarily fixated. Intraoperative fluoroscopy utilized to check position and reduction. It was deemed to be appropriate. Wounds flushed with saline. Next the bunion and screws were inserted without complication. X-ray used to check fixation which was deemed to be appropriate and stable. Adequate compression noted across the osteotomy sites. Next rongeur was used to remove the medial spike of the metatarsal shaft. Skin was cleansed. Subcutaneous tissue closed with vicryl. Left modified Gabriel and synovial cyst removal: Separate incision was made over the distal lateral left first MTPJ. Full-thickness dissection. Synovial cyst noted and resected. Adductor tendon release 10 standard lateral release technique. Wound flushed with saline. Skin to both incisions was closed with nylon. Left foot soft tissue mass removal: Linear incision made on the plantar medial aspect of the plantar fascia over the palpable mass. Full-thickness incision down to the level of the plantar fascia. Soft tissue mass noted consistent with plantar fibroma. It was excised in total and sent to pathology specimen. Wound flushed with gentamicin irrigation. Plantar fascia explored and no other palpable mass noted. Nylon used to close skin. Skin was cleansed. Xerofrom applied to incisions. Betadine soaked gauze used to splint the corrected bunion, along with a dry sterile dressing. Patient tolerated procedure and anesthesia without complication. The patient was awoken from anesthesia and transferred to recovery with vital signs stable and neurovascular status intact. Patient will be discharged home today. Patient appeared to tolerate procedure and anesthesia well without complication. Materials: Treace Nanoplasty 3d MIS Bunion System (plate, 3 locking screws, full threaded cannulated screw) Discharge/Plan: Plan to discharge home. Patient is to maintain dressing clean dry and intact. Ice/polar pack behind the left knee and elevate on foam ramp or two pillows. Non weight bearing to the left lower extremity with crutches/RKS. Take Rx as previously directed. Rx given for Bethesda, Gabapentin, Zofran 4mg, Motrin 800mg. Obtain post op films, left foot 3 views. Follow up in one week for skin check and dressing change. Condition: stable Disposition: same day Specimens:: Left plantar fibroma Complications:: None
--- NOTE | 2024-11-10 11:45 | EXP.ANES.I ---
[facility] Anesthesia Record Part I Anesthesia Record I Intake, IV Amount: 1,300 Hydration: Adequate Estimated blood loss (mL): 5 Urine output (mL): 0 Blood Products used (#): none Blood Pressure: 131/90 SaO2: 97 Pulse Rate: 130 Airway Patency: Patent Respiratory Rate: 22 Temperature: 98.6 F Patient is:: Drowsy and Stable Stable to PACU at:: 11:40
--- NOTE | 2024-11-10 12:00 | XR_ITS ---
FINAL REPORT CLINICAL HISTORY: s/p bunionectomy COMPARISON: 05/26/2024 FINDINGS: Three views were obtained. There are postoperative changes from bunionectomy and osteotomy. Cortical plate is in place. Osteotomy site is displaced up to 9 mm. Remaining osseous structures are intact. IMPRESSION: Postoperative changes from bunionectomy and osteotomy. Reviewed, Interpreted and Dictated by Dina Martinez MD Transcribed by Katalina Maldonado Authenticated and [facility]
--- NOTE | 2024-11-11 11:50 | EXP.ANES.II ---
[facility] Anesthesia Record Part II Anesthesia Record Part II Discharge Time: 12:10 Destination: Surgical Day Care (OP Surgery) PACU nurse assessment reviewed?: Yes Patient Condition:: Good Anesthesia Complications:: None Swallowing reflex intact?: Yes Airway Patency: Patent Cyanosis?: No Blood Pressure: 126/79 SaO2: 99 Respiratory Rate: 22 Pulse Rate: 101 Temperature: 97.9 F Mental Status: Alert & Oriented Pain level:: 0 Nausea and/or vomitting:: None Intake, IV Amount: 0 Hydration: Adequate
[2024-11-11 11:51] VITALS: BP 126/79; PULSE 101; RESP 22; TEMP 36.6; O2SAT 99
== END 2024-11-10 12:45 | disposition home or self-care (01) ==
PROVIDERS: Visit Provider Podiatrist
PROC: (CPT 28090; principal; 2024-11-10 09:30)
DX: M21.612 Bunion of left foot (principal); M20.12 Hallux valgus (acquired), left foot; M19.072 Primary osteoarthritis, left ankle and foot; D21.22 Benign neoplasm of connective and other soft tissue of left lower limb, including hip
CPT/HCPCS: 28090; 28296; 73620; 73630; C1713; J1100; J2250; J2405; J3010; J7120

== ENCOUNTER 2024-12-06 15:23 | Outpatient (CLI) | payer OTHER, SELFPAY ==
--- NOTE | 2024-12-06 15:26 | XR_ITS ---
FINAL REPORT CLINICAL HISTORY: Foot Pain COMPARISON: 11/10/2024 FINDINGS: LEFT FOOT Three views of the left foot demonstrate postoperative changes from osteotomy of the left 1st metatarsal. No bony union is seen at this time. The hardware is stable. The remaining osseous structures are unremarkable. The soft tissues are unremarkable. IMPRESSION: Postoperative changes 1st metatarsal osteotomy without bony union. Reviewed, Interpreted and Dictated by Dina Martinez MD Transcribed by Tiara Shi Authenticated and [facility]
== END 2024-12-06 23:59 | disposition home or self-care (01) ==
LOC: RAD 15:24
PROVIDERS: Visit Provider Podiatrist
DX: M79.672 Pain in left foot (principal)
CPT/HCPCS: 73630

== ENCOUNTER 2024-12-20 09:50 | Outpatient (CLI) | payer OTHER, SELFPAY ==
--- NOTE | 2024-12-20 09:52 | XR_ITS ---
FINAL REPORT CLINICAL HISTORY: Foot pain FINDINGS: LEFT FOOT Three views of the left foot demonstrate no acute fracture or dislocation. There is sideplate and screw securing a first metatarsal ostomy. Osteotomy remains clearly visible. No bridging callus formation is seen. The visualized joint spaces are normally aligned. The soft tissues are unremarkable. IMPRESSION: Postoperative changes as above. Reviewed, Interpreted and Dictated by Román Villanueva MD Transcribed by Mary Beth Moore Authenticated and [facility]
== END 2024-12-20 23:59 | disposition home or self-care (01) ==
LOC: RAD 09:50
PROVIDERS: Visit Provider Podiatrist
DX: M79.672 Pain in left foot (principal)
CPT/HCPCS: 73630

== ENCOUNTER 2025-01-10 09:50 | Outpatient (CLI) | payer OTHER, SELFPAY ==
--- NOTE | 2025-01-10 09:53 | XR_ITS ---
FINAL REPORT CLINICAL HISTORY: Foot Pain COMPARISON: 12/20/2024 FINDINGS: AP, oblique and lateral views of the left foot were obtained. Postoperative changes of the first metatarsal are again noted. The alignment is stable. Hardware is intact. There is no acute fracture or dislocation. There is a minimal increase in callus formation since the prior exam. IMPRESSION: Postoperative changes of the first metatarsal are again noted, hardware is intact. Minimal additional callus formation is noted. Reviewed, Interpreted and Dictated by Kayce Moore MD Transcribed by Tammie Bolden Authenticated and [facility]
== END 2025-01-10 23:59 | disposition home or self-care (01) ==
LOC: RAD 09:51
PROVIDERS: Visit Provider Podiatrist
DX: M79.672 Pain in left foot (principal)
CPT/HCPCS: 73630

== ENCOUNTER 2025-01-17 10:56 | Outpatient (RCR) | payer OTHER, SELFPAY ==
--- NOTE | 2025-01-17 16:34 | HMH.PTOPEV ---
PT Outpatient Evaluation Rehab PT Outpatient Evaluation Start: 01/17/25 16:15 Freq: Status: Active Protocol: Document 01/17/25 16:16 EFRAIN (Rec: 01/17/25 16:34 EFRAIN [id number]) E-signed By Jesse Trinidad, PT Outpatient Therapy Subjective History Subjective History This is the initial PT eval for Rosa Vegas, 49 yowf who presents ~ 2 mos S/P L foot bunionectomy with cyst removal with continued pain and stiffness. She reports she did have increased edema, but this has significantly reduced at this point. She reports pain is worse at the end of the day after prolonged walking. She also reports minimal numbness to the anterior L great toe post surgery. No significant PMH to report. Chief Complaint Pain,Stiff Symptom Type Ache Symptoms Relieved By Rest/Positioning Symptoms Aggravated By Walking Prior Functional Limitations None Current Functional Limitations Housework,Standing,Walking Symptom Description Activity Dependent Level of pain today (0-10) 2 Pain scale - at its best (0-10) 0 Pain scale - at its worst (0-10) 4 Ankle/Foot Eval Gait Observation General Gait Pattern Observation Antalgic Gait Palpation Tenderness left Ankle/Foot Palpation Findings Tenderness Ankle/Foot Palpation Overall Comment incisions, distal plantar fascia 2/4 ROM Ankle/Foot Dorsiflexion w/Knee Extended 0-5 Active Range Motion (degrees) Ankle/Foot Plantar Flexion Active Range 0-50 of Motion (degrees) Ankle/Foot Eversion Active Range of 0-30 Motion (degrees) Ankle/Foot Inversion Active Range of 0-38 Motion (degrees) Great Toe Metatarsophalangeal Extension 0-20 Active Range Motion (degrees) Great Toe Metatarsophalangeal Flexion 0-45 Active Range of Motion (degrees) Great Toe ROM Limitations Soft Tissue Tightness MMT Ankle Dorsiflexion Strength Grade 5 Normal Ankle Plantarflexion Strength Grade 5 Normal Foot Eversion Strength Grade 5 Normal Foot Inversion Strength Grade 5 Normal Outpatient Therapy Assessment Impairments Problems/Impairmments Palpation Tenderness,Impaired Range of Motion,Impaired Gait Pattern,Impaired Walking, Impaired Standing,Impaired Work Activities,Subjective C/O Pain,Impaired Self Care/Self Management Prognosis Rehab Potential Good Comment Skilled therapy is indicated to improve L foot flexibility and strength, and improve gait pattern in order to aid pt return to PLOF. Clinical Impression Consistent with Diagnosis Yes Short Term Goals Number of Weeks 2 Decreased Palpation Tenderness Yes: 1/4 L foot Increase Range of Motion Yes: L great toe MTP ext 0-35 deg Improve Gait Pattern with Assistive Yes: no antalgic gait with Device post-op shoe Decrease Subjective C/O Pain Yes: 2/10 at worst L foot Patient to be Ind w/ HEP Yes Lens Inspector Goals Decreased Palpation Tenderness Yes: 0/4 L foot Improve Gait Pattern without Assistive Yes: No antalgic gait with Device regular shoe Improve Tolerance to Work Activities Yes: without pain Decrease Subjective C/O Pain Yes: 0/10 at worst L foot Patient to be Ind w/ Advanced HEP Yes Outpatient Therapy Plan of Care Treatment Plan May Include Therapeutic Exercise Including Home Yes Exercise Program Manual Therapy Techniques Yes Neuromuscular Re-education Yes Therapeutic Activities to Return to Yes Previous Functional/Work Level Gait Training Yes ADL/Self Care Education Yes Thermal Modalities Yes Electrical Stimulation Yes Ultrasound/Phonophoresis Yes Orthotics/Bracing/Splinting Yes Eval/Re-Eval Yes Frequency Times per week 1-2 Duration Number of Weeks 4 Addendums This patient is a candidate for social No or vocational rehab? Patient/Guardian verbally acknowledges Yes understanding of treatment program and consents to further treatment? Patient/Guardian verbally acknowledges Yes understanding of diagnosis, prognosis and goals for treatment? Eval Complexity PT Charges 92618 - High Complexity Shoulder/Elbow Eval Shoulder Objective Measurements Elbow Objective Measurements PHYSICIAN CERTIFICATION: I certify the specified therapy services for Rosa Vegas are required, authorized, and reviewed every 30 days.
== END 2025-01-17 23:59 | disposition home or self-care (01) ==
LOC: PT 10:56
PROVIDERS: Visit Provider Podiatrist
DX: R60.9 Edema, unspecified (principal); G89.18 Other acute postprocedural pain
CPT/HCPCS: 97110; 97140; 97163

== ENCOUNTER 2025-02-03 11:00 | Outpatient (RCR) | payer OTHER, SELFPAY | END 2025-02-03 23:59 | disposition home or self-care (01) | LOC: PT 11:00 | PROVIDERS: Visit Provider Podiatrist | DX: R60.9 Edema, unspecified (principal); G89.18 Other acute postprocedural pain | CPT/HCPCS: 97110; 97140; 97535 ==

== ENCOUNTER 2025-02-04 10:33 | Outpatient (CLI) | payer OTHER, SELFPAY ==
--- NOTE | 2025-02-04 10:36 | XR_ITS ---
FINAL REPORT CLINICAL HISTORY: Post Op LT FOOT COMPARISON: 01/10/2025 FINDINGS: LEFT FOOT Three views demonstrate no acute fracture. There is a sideplate and screws securing osteotomy of the first metatarsal. There has been progressing bridging callus. The first metatarsophalangeal joint is intact. There is no acute soft tissue abnormality. IMPRESSION: Postoperative changes with evidence of progressing bridging callus. Reviewed, Interpreted and Dictated by Román Villanueva MD Transcribed by Niurka Peguero Authenticated and [facility]
== END 2025-02-04 23:59 | disposition home or self-care (01) ==
LOC: RAD 10:34
PROVIDERS: Visit Provider Podiatrist
DX: Z98.890 Other specified postprocedural states (principal); M19.071 Primary osteoarthritis, right ankle and foot; M19.072 Primary osteoarthritis, left ankle and foot
CPT/HCPCS: 73630

== ENCOUNTER 2025-03-04 14:23 | Outpatient (CLI) | payer OTHER, SELFPAY ==
--- NOTE | 2025-03-04 14:50 | MM_ITS ---
PROCEDURE INFORMATION: Exam: MG Bilateral Screening 3D Mammography Exam date and time: 03/04/2025 2:36 PM Age: 49 years old Clinical indication: Screening examination. TECHNIQUE: Imaging protocol: Bilateral Screening tomosynthesis and 2D mammography including computer-aided detection (CAD) when performed. COMPARISON: 1. MG MM DX IMPLANT RT W/NOAH 03/17/2024 1:51 PM 2. MG MM DIG SC MAMM IMPLANT BI CAD 02/23/2024 4:06 PM FINDINGS: MAMMOGRAPHY: Breast composition: There are scattered areas of fibroglandular density. Mass: None. Architectural distortion: None. Calcifications: No suspicious calcifications. Asymmetric density: None. Skin thickening: None. Axillary adenopathy: None. Implants: Post pectoral saline breast implants are present. IMPRESSION: No mammographic evidence of malignancy. Annual screening is recommended unless otherwise clinically indicated. ASSESSMENT: BI-RADS Category 1: Negative.
== END 2025-03-04 23:59 | disposition home or self-care (01) ==
LOC: RAD 14:24
PROVIDERS: PCP Internal Medicine; Visit Provider Internal Medicine
DX: Z12.31 Encounter for screening mammogram for malignant neoplasm of breast (principal)
CPT/HCPCS: 77063; 77067

== ENCOUNTER 2025-03-21 10:57 | Outpatient (RCR) | payer OTHER, SELFPAY ==
--- NOTE | 2025-03-21 12:36 | HMH.OTOPEV ---
OT Inpatient Evaluation Rehab OT Outpatient Eval Start: 03/21/25 11:44 Freq: Status: Active Protocol: Document 03/21/25 11:45 RMARSHALL (Rec: 03/21/25 12:33 [id number] E-signed By Beth Moreno, OT Outpatient Therapy Subjective History Subjective History Pt is a 49 year old female who reports to therapy for initial evaluation to L elbow. Pt reports she has been experiencing pain in the lateral aspect of left elbow for a couple months now. Pt does not recall a specific injury to cause her pain to begin. However, pt was on crutches a few months ago for an extended amount of time due to a foot surgery. Pt does not recall specifically when her pain started, but she does believe it started after using the crutches. Pt's AROM at left elbow is within normal limits. Pt's strength is slightly declined. Pt is right hand dominant. Pt's smoke jumper supervisor strength is slightly declined in left hand as well. STG L hand smoke jumper supervisor strength: 53 lbs LTG L hand smoke jumper supervisor strength: 60 lbs New diagnosis of cancer in past 12 No months? Chief Complaint Pain,Weakness,Decreased Investigator Welfare Strength Symptom Type Ache,Throb,Sharp Symptoms Relieved By Nothing Symptoms Aggravated By Physical Activity,Twisting, Lifting Prior Functional Limitations None Current Functional Limitations Reaching,Lifting,Housework, Dressing,Sleeping,Recreation Activity Symptom Description Constant but Variable Level of pain today (0-10) 2 Pain scale - at its best (0-10) 1 Pain scale - at its worst (0-10) 6 Shoulder/Elbow Eval Shoulder Objective Measurements Elbow Objective Measurements Elbow ROM Left Elbow Extension Active Range of Motion ( -5 degrees degrees) Elbow Flexion Active Range of Motion ( 150 degrees degrees) Elbow Pronation of Forearm Range of 90 degrees Motion (degrees) Elbow Supination of Forearm Range of 90 degrees Motion (degrees) Elbow MMT Elbow Flexion Strength Grade 3+ Fair+ Elbow Extension Strength Grade 3+ Fair+ Supination Strength Grade 3+ Fair+ Pronation Strength Grade 3+ Fair+ Wrist/Hand Eval Investigator Welfare/Pinch Strength Right Investigator Welfare Strength Measurement (lbs) 70 Left Investigator Welfare Strength Measurement (lbs) 52 QuickDASH Activities Please rate your ability to do the following activities in the last week by selecting the number below the appropriate response. 1. Open a tight or new jar. Mild difficulty 2. Do heavy sales architect (e.g., wash Mild difficulty [place], floors). 3. Carry a shopping bag or briefcase. Moderate difficulty 4. Wash your back. No difficulty 5. Use a knife to cut food. No difficulty 6. Recreational activities in which you Moderate difficulty take some force or impact through your arm, shoulder, or hand (e.g., golf, hammering, tennis, etc.). 7. During the past week, to what extent Moderately has your arm, shoulder or hand problem interfered with your normal social activities with family, friends, neighbors or groups? 8. During the past week, were you Slightly limited limited in your work or other regular daily activites as a result of your arm, shoulder or hand problem? 9. Arm, shoulder or hand pain. Mild 10. Tingling (pins and needles) in your None arm, shoulder or hand. 11. During the past week, how much Mild difficulty difficulty have you had sleeping because of the pain in your arm, shoulder or hand? Quick DASH 22 OT Outpatient Assessment Impairments Problems/Impairments Palpation Tenderness,Impaired Range of Motion,Impaired Strength,Impaired Endurance, Impaired Lifting,Impaired Household Care,Impaired Recreational Activities, Impaired Work Activities, Subjective C/O Pain Prognosis Rehab Potential Good Clinical Impression Consistent with Diagnosis Yes Short Term Goals Number of Weeks 3 Increase Range of Motion Yes: Ext: 0 Increase Strength Yes: 4-/5 throughout left elbow Increase Endurance Yes: Pt will tolerate L elbow exercises for ~10 minutes prior to rest. Decrease Subjective C/O Pain Yes: 3/10 at worst Patient to be Ind w/ HEP Yes: AAROM/AROM exercises; yellow theraputty Improve Quick Dash Score Yes: Activities: 20 or below Skilled Nursing Goals Number of Weeks 6 Increase Strength Yes: 4/5 throughout left elbow Increase Endurance Yes: Pt will tolerate L elbow exercises for ~20 minutes prior to rest. Decrease Subjective C/O Pain Yes: 2/10 at worst Patient to be Ind w/ Advanced HEP Yes: Advanced strengthening Improve Quick Dash Score Yes: Activities: 15 or below Outpatient Therapy Plan of Care Treatment Plan May Include Therapeutic Exercise Including Home Yes Exercise Program Manual Therapy Techniques Yes Neuromuscular Re-education Yes Therapeutic Activities to Return to Yes Previous Functional/Work Level ADL/Self Care Education Yes Dry Needling Yes Thermal Modalities Yes Electrical Stimulation Yes Ultrasound/Phonophoresis Yes Iontophoresis Yes Parrafin Yes Orthotics/Bracing/Splinting Yes Massage Yes Eval/Re-Eval Yes Frequency Times per week 2 Duration Number of Weeks 6 Addendums This patient is a candidate for social No or vocational rehab? Patient/Guardian verbally acknowledges Yes understanding of treatment program and consents to further treatment? Patient/Guardian verbally acknowledges Yes understanding of diagnosis, prognosis and goals for treatment? Eval Complexity OT Charge 71073 - Moderate Complexity PHYSICIAN CERTIFICATION: I certify the specified therapy services for Rosa Vegas are required, authorized, and reviewed every 30 days.
== END 2025-03-21 23:59 | disposition home or self-care (01) ==
LOC: OT 10:57
PROVIDERS: PCP Internal Medicine; Visit Provider Internal Medicine
DX: M79.632 Pain in left forearm (principal)
CPT/HCPCS: 97166; 97530

== ENCOUNTER 2025-03-22 09:20 | Outpatient (CLI) | payer OTHER, SELFPAY ==
--- NOTE | 2025-03-22 09:23 | XR_ITS ---
FINAL REPORT CLINICAL HISTORY: left foot postoperative pain COMPARISON: 02/04/2025 FINDINGS: LEFT FOOT Three views of the left foot demonstrate a sideplate and screws securing the 1st metatarsal. Osteotomy is noted of the mid 1st metatarsal. The joint spaces are preserved. No acute fracture or dislocation. The soft tissues are unremarkable. IMPRESSION: No significant change from the previous study. Reviewed, Interpreted and Dictated by Román Villanueva MD Transcribed by Tiara Shi Authenticated and [facility]
== END 2025-03-22 23:59 | disposition home or self-care (01) ==
LOC: RAD 09:21
PROVIDERS: PCP Internal Medicine; Visit Provider Podiatrist
DX: G89.18 Other acute postprocedural pain (principal); R60.9 Edema, unspecified
CPT/HCPCS: 73630

== ENCOUNTER 2025-04-06 11:01 | Outpatient (CLI) | payer OTHER, SELFPAY ==
--- NOTE | 2025-04-06 11:00 | CT_ITS ---
FINAL REPORT TECHNIQUE: Thin section axial CT images with coronal and sagittal reformats were performed of the left foot. This study was performed with techniques to keep radiation doses as low as reasonably achievable (ALARA). Individualized dose reduction techniques using automated exposure control or adjustment of mA and/or kV according to the patient''s size were employed. CLINICAL HISTORY: s/p left foot bunionectomy, eval pain/healing COMPARISON: 03/22/2025 FINDINGS: Sideplate and screws are seen securing a healed osteotomy of the first metatarsal. There is some persistent lucency along the osteotomy site with bridging callus formation. There are no fractures. There are no masses or fluid collections. There are no soft tissue abnormalities. IMPRESSION: Healing osteotomy. Reviewed, Interpreted and Dictated by Román Villanueva MD Transcribed by Mary Beth Moore Authenticated and [facility]
[2025-04-06 12:21] LABS: Basophils # 0.1 K/mm3 (0-0.2); Eosinophils % 0.6 % (0.1-12.0); Hemoglobin 13.3 g/dL (12.2-16.2); Immature Granulocytes # 0.02 10^3uL; Immature Granulocytes % 0.3 %; Lymphocytes # 1.9 K/mm3 (0.7-4.5); Lymphocytes % 31.1 % (10-50); Mean Corpuscular HGB Conc 33.3 g/dL (31.8-35.4); Mean Corpuscular Hemoglobin 31.3 pg (27.0-31.2); Mean Corpuscular Volume 94.1 fl (81-99); Mean Platelet Volume 9.1 fl (7.4-10.4); Monocytes # 0.3 K/mm3 (0.1-1.0); Monocytes % 5.1 % (1.7-9.3); Neutrophils # 3.9 K/mm3 (1.8-7.8); Neutrophils % 61.9 % (37.0-80.0); Nucleated Red Blood Cells # 0 10^3/uL; Nucleated Red Blood Cells % 0 %; Platelet Count 382 K/mm3 (142-424); Red Blood Count 4.25 M/mm3 (4.20-5.40); Red Cell Distribution Width 12.6 % (11.5-17.5); Red Cell Distribution Width-SD 43.7 fL; White Blood Count 6.2 K/mm3 (4.8-10.8)
[2025-04-06 12:51] LABS: Alanine Aminotransferase 22 U/L (12-78); Albumin Level 5.3 g/dl (3.5-5.0); Albumin/Globulin Ratio 2.2 (1.1-1.8); Alkaline Phosphatase 72 U/L (38-126); Anion Gap 8.5 mEq/L (5-15); Aspartate Amino Transferase 36 U/L (14-36); Bilirubin,Total 1.1 mg/dl (0.2-1.3); Blood Urea Nitrogen 24 mg/dl (7-17); Calcium 10.1 mg/dl (8.4-10.2); Carbon Dioxide 29 mmol/L (22.0-30.0); Chloride 106 mmol/L (98-107); Estimated Glomerular Filt Rate 88 ml/min (>60); GFR (African American) 107 ML/MIN (>60); Globulin 2.4 g/dL (1.3-3.2); Glucose 87 mg/dl (74-100); Potassium 5.5 mmoL/L (3.5-5.1); Sodium 138 mmol/L (136-145); Total Protein,Serum 7.7 g/dl (6.3-8.2)
[2025-04-06 13:02] LABS: Erythrocyte Sedimentation Rate 14 mm/hr (0-30)
== END 2025-04-06 23:59 | disposition home or self-care (01) ==
LOC: RAD 11:01
PROVIDERS: PCP Internal Medicine; Visit Provider Podiatrist
DX: M79.672 Pain in left foot (principal); G89.18 Other acute postprocedural pain; R60.9 Edema, unspecified; Z98.890 Other specified postprocedural states
CPT/HCPCS: 36415; 73700; 80053; 85025; 85651; 86140

== ENCOUNTER 2025-04-12 11:00 | Outpatient (RCR) | payer OTHER, SELFPAY | END 2025-04-12 23:59 | disposition home or self-care (01) | LOC: OT 11:00 | PROVIDERS: PCP Internal Medicine; Visit Provider Internal Medicine | DX: M79.602 Pain in left arm (principal) | CPT/HCPCS: 97014; 97035; 97110; 97140; G0283 ==

== ENCOUNTER 2025-04-25 10:58 | Outpatient (RCR) | payer OTHER, SELFPAY | END 2025-04-25 23:59 | disposition home or self-care (01) | LOC: OT 10:58 | PROVIDERS: PCP Internal Medicine; Visit Provider Internal Medicine | DX: M79.632 Pain in left forearm (principal) | CPT/HCPCS: 97014; 97035; 97110; 97140; G0283 ==

== ENCOUNTER 2025-05-12 10:51 | Outpatient (CLI) | payer OTHER, SELFPAY ==
--- NOTE | 2025-05-12 10:56 | XR_ITS ---
FINAL REPORT TECHNIQUE: Left elbow 3 views CLINICAL HISTORY: Left elbow pain COMPARISON: None FINDINGS: LEFT ELBOW: 3 images of the left elbow were obtained. There is no evidence of fracture or dislocation. The joint spaces are intact. There is no soft tissue abnormality identified. IMPRESSION: No acute bony abnormality. Reviewed, Interpreted and Dictated by Román Villanueva MD Transcribed by Tammie Bolden Authenticated and [facility]
== END 2025-05-12 23:59 | disposition home or self-care (01) ==
LOC: RAD 10:52
PROVIDERS: PCP Internal Medicine; Visit Provider Physician Assistant Surgical
DX: M25.522 Pain in left elbow (principal)
CPT/HCPCS: 73080

== ENCOUNTER 2025-05-30 09:34 | Day surgery (SDC) | payer OTHER, SELFPAY ==
[2025-05-30 10:12] VITALS: BMI 21.7
[2025-05-30] MEDS: LACTATED RINGERS 1000ML 1,000 ML 50 ML IV (10:17)
[2025-05-30 10:20] VITALS: BP 136/86; PULSE 99; RESP 18; TEMP 36.3; O2SAT 100
--- NOTE | 2025-05-30 10:38 | EXP.ANES.CKL ---
[facility] Disclaimer: The information contained in this section may have been updated after the patient was seen, as this information can be updated by other users. Medical History Hypertension Mitral prolapse Palpitations Pericardial calcification HFrEF (heart failure with reduced ejection fraction) Abnormal cardiovascular stress test Abnormal echocardiogram Cardiomyopathy Sinus tachycardia Hyperlipidemia Pre-operative cardiovascular examination Abnormal electrocardiogram [ECG] [EKG] Hypertension affecting Family history of breast cancer in first degree relative Bone spur Surgical History Hx of foot surgery Hx of shoulder surgery History of cardiac cath Hx of hernia repair History of tubal ligation Family History Other Alcoholism Cancer Diabetes Heart attack Hyperlipidemia Hypertension Kidney disease Social History Smoking Status: Never smoker alcohol intake: never substance use type: denies use current occupational status: employed Travel in the last 8 weeks?: Inside the [place] Have you lived/traveled outside US in past 30 days?: No Contact w/someone who lives/traveled outside US past 30 days?: No Exposure to someone with infectious disease in past 14 days?: No Do you have a fever (greater than 100.4 F or 38 C)?: No Have you tested positive for COVID-19?: Yes Exposed to someone with COVID-19 in past 14 days?: No Do you have a sore throat?: No Do you have a cough?: No Do you have any weakness?: No Are you experiencing any nausea/vomitting?: No Do you have any diarrhea?: No Are you experiencing any unusual bleeding?: No Do you have any muscle aches/pain?: No Do you have any abdominal pain?: No Are you experiencing loss of taste or smell?: No [facility] Anesthesia Checklist Patient Identification Patient Identification: Arm Band and Verbal (Name & ) Structural Data Admitted From: Emergency Dept Planned Operative Procedure/s: colonscopy Consent for Planned Operative Procedure(s) Verified: Yes Verified Documents: Surgical Consent and History and Physical NPO Status Verified Time NPO: 00:00 Additional verifications Anesthesia Reactions: Yes (nausea/vomitting) Hx Blood Transfusions: No Blood Transfusion Reaction: No Airway Assessment Mallampati Score:: Class II Dentition: Good Dentition Neurological Assessment Level of Consciousness: Awake, Alert and Appropriate Anesthesia Plan Anesthesia Risk discussed: Yes Anesthesia Plan: Verified ASA Class: II Anesthesia Type: MAC
--- NOTE | 2025-05-30 11:22 | EXP.HP ---
History of Present Illness *Admission Date: 05/30/25 *Reason for visit:: Screening for colon cancer *History of present illness: Mrs. Vegas is a 49-year-old female who is here for screening colonoscopy. The examination is deemed medically necessary for screening colonoscopy. The patient has been seen, interviewed and examined prior to the procedure by both myself and the anesthesia provider. [facility] Disclaimer: The information contained in this section may have been updated after the patient was seen, as this information can be updated by other users. Medical History Hypertension Mitral prolapse Palpitations Pericardial calcification HFrEF (heart failure with reduced ejection fraction) Abnormal cardiovascular stress test Abnormal echocardiogram Cardiomyopathy Sinus tachycardia Hyperlipidemia Pre-operative cardiovascular examination Abnormal electrocardiogram [ECG] [EKG] Hypertension affecting Family history of breast cancer in first degree relative Bone spur Surgical History Hx of foot surgery Hx of shoulder surgery History of cardiac cath Hx of hernia repair History of tubal ligation Family History Other Alcoholism Cancer Diabetes Heart attack Hyperlipidemia Hypertension Kidney disease Social History Smoking Status: Never smoker alcohol intake: never substance use type: denies use current occupational status: employed Travel in the last 8 weeks?: Inside the [place] Have you lived/traveled outside US in past 30 days?: No Contact w/someone who lives/traveled outside [place] past 30 days?: No Exposure to someone with infectious disease in past 14 days?: No Do you have a fever (greater than 100.4 F or 38 C)?: No Have you tested positive for COVID-19?: Yes Exposed to someone with COVID-19 in past 14 days?: No Do you have a sore throat?: No Do you have a cough?: No Do you have any weakness?: No Are you experiencing any nausea/vomitting?: No Do you have any diarrhea?: No Are you experiencing any unusual bleeding?: No Do you have any muscle aches/pain?: No Do you have any abdominal pain?: No Are you experiencing loss of taste or smell?: No Other Medical History Have you received the Pneumonia Vaccine: No Review of Systems Review of Systems Review of systems (narrative): Negative *Cardiovascular Comments: Negative *Gastrointestinal Comments: Negative *Genitourinary Comments: Negative *Musculoskeletal Comments: Negative *Neurologic Comments: Negative Meds Home Medications and Allergies Home Medications ?Medication ?Instructions ?Recorded ?Confirmed ?Type metoprolol succinate 50 mg 50 mg PO DAILY #90 tabs 10/12/24 05/30/25 Rx tablet,extended release 24 hr cyclobenzaprine 5 mg tablet 5 mg PO Q8H PRN muscle spasm #60 05/04/25 05/30/25 Rx tabs meloxicam 7.5 mg tablet 7.5 mg PO DAILY PRN Pain 05/30/25 05/30/25 History New Prescriptions to Start Prescriptions: Allergies Allergy/AdvReac Type Severity Reaction Status Date / Time No Known Allergies Allergy Verified 05/30/25 10:18 Exam Data for Last 24 hours Vital signs and Labs for Last 24 Hours: Temp Pulse Resp BP Pulse Ox O2 Del Method 97.4 F L 99 H 18 136/86 100 Room Air 05/30/25 10:20 05/30/25 10:20 05/30/25 10:20 05/30/25 10:20 05/30/25 10:20 05/30/25 10:20 I & O for Last 24 hours: Intake & Output 05/27/25 05/28/25 05/29/25 05/30/25 23:59 23:59 23:59 23:59 Weight 135 lb *Routine HEENT Exam Head: Present normocephalic Eye: Present EOMI and PERRL ENT: Present mucous membranes moist *Routine Neck Exam Neck: Present supple *Routine Respiratory Exam Respiratory: Present CTA bilaterally *Routine Cardiovascular Exam Cardiovascular: Present RRR *Routine Abdominal Exam Abdominal: Present soft and normoactive bowel sounds; Absent tenderness *Routine Rectal Exam Rectal:: deferred *Routine Genitalia Exam Genitalia:: deferred *Routine Extremities Exam Extremities: Absent cyanosis, clubbing or edema *Routine Skin Exam Skin: Present warm; Absent rash *Routine Neurological Exam Neurological: Present alert and oriented X3 Assessment and Plan *Assessment and plan (1) Screening for colorectal cancer: Status: Acute Category: Medical Code(s): Z12.11 - Encounter for screening for malignant neoplasm of colon; Z12.12 - Encounter for screening for malignant neoplasm of rectum Plan A/P: 1. Screening for colorectal cancer is the preprocedural diagnosis. The patient will be anesthetized/sedated using MAC sedation. The patient has been seen and examined. Cardiac and lung assessment prior to the examination is stable. Proceed with planned screening colonoscopy.
--- NOTE | 2025-05-30 11:31 | P.PCN_ITS ---
[facility] Procedure Note Date: 05/30/25 Time: 11:44 Procedure Note:: Colonoscopy Procedure Report: Colonoscopy Endoscopist: Thanh Wang II, MD Referring physician: Artie Conner DO Date of Procedure: May 30, 2025 Equipment: Olympus 190 variable stiffness pediatric colonoscope Sedation: MAC sedation Indication: Mrs. Vegas is a 49-year-old female who is here for initial screening colonoscopy. She reports no abdominal pain, weight loss, change in her bowel habits or rectal bleeding. She does state that her maternal grandfather had colon cancer in his 70s. Procedure: Prior to the procedure, a history and physical exam was performed, and patient's medications and allergies were reviewed. The risks, benefits and alternatives of the sedation and procedure were discussed with the patient. All questions were answered and informed consent was obtained. The patient was brought to the procedure room. Patient identification and proposed procedure were verified by the physician and the nurse. The patient was placed in a left lateral decubitus position and the scope was passed under direct vision. Throughout the procedure, the patient's blood pressure, pulse, and oxygen saturations were monitored continuously. The colonoscopy was accomplished without difficulty. The patient tolerated the procedure well. Findings: On digital rectal examination there was normal rectal tone. There were no external hemorrhoids. The colonoscope was introduced through the anal canal to the rectum and advanced to the cecum. The ileocecal valve and appendiceal orifice were identified. The scope was advanced a short distance into the ileum which appeared grossly normal. The scope was then withdrawn into the colon. The cecum, ascending and transverse colon and mucosa were grossly normal. There were scattered diverticuli throughout the descending and sigmoid colon (LEFT colon). The rectum itself was normal. Upon retroflexion within the rectum there were grade 1 internal hemorrhoids. The preparation was excellent throughout with Clinton Preparation Score of 9. The cecal time was 11 minutes. Impression: 1. Left-sided diverticulosis 2. Grade 1 internal hemorrhoids Plan: The patient will not require surveillance colonoscopy again for 10 years by ACS guidelines. I would encourage psyllium bulking fiber supplementation on a maintenance basis.
[2025-05-30 11:46] VITALS: BP 123/78; PULSE 83; RESP 16; TEMP 36.2; O2SAT 98
[2025-05-30 11:56] VITALS: BP 127/73; PULSE 90; RESP 16; O2SAT 99
[2025-05-30 12:06] VITALS: BP 141/74; PULSE 78; RESP 18; O2SAT 100
[2025-05-30 12:16] VITALS: BP 125/79; PULSE 70; RESP 18; O2SAT 100
[2025-05-30 12:40] VITALS: BP 120/76; PULSE 85; RESP 18; TEMP 36.2; O2SAT 100
== END 2025-05-30 12:40 | disposition home or self-care (01) ==
PROVIDERS: PCP Internal Medicine; Visit Provider Internal Medicine Gastroenterology
PROC: 0DJD8ZZ Inspection of Lower Intestinal Tract, Via Natural or Artificial Opening Endoscopic (ICD-10-PCS; CPT 45378; principal; 2025-05-30 11:00)
DX: Z12.11 Encounter for screening for malignant neoplasm of colon (principal); K57.30 Diverticulosis of large intestine without perforation or abscess without bleeding; K64.0 First degree hemorrhoids; I11.0 Hypertensive heart disease with heart failure; I50.22 Chronic systolic (congestive) heart failure; I34.0 Nonrheumatic mitral (valve) insufficiency; I42.9 Cardiomyopathy, unspecified; Z79.899 Other long term (current) drug therapy
CPT/HCPCS: 45378; J2003; J2704; J7120

== ENCOUNTER 2025-06-03 10:21 | Outpatient (CLI) | payer OTHER, SELFPAY ==
--- NOTE | 2025-06-03 10:23 | XR_ITS ---
FINAL REPORT CLINICAL HISTORY: Follow up for an appointment COMPARISON: 03/22/2025 FINDINGS: LEFT FOOT: Three views show no evidence of acute displaced fracture or dislocation of the visualized bony architecture. Postoperative change of the first metatarsal osteotomy are again noted. The plate and screws seen on the prior exam remain present, and there has been interval healing of the osteotomy site. The joint spaces appear normal. IMPRESSION: Postoperative changes of the first metatarsal again noted, without acute bony abnormality. Reviewed, Interpreted and Dictated by Dina Martinez MD Transcribed by Tammie Bolden Authenticated and [facility]
== END 2025-06-03 23:59 | disposition home or self-care (01) ==
LOC: RAD 10:22
PROVIDERS: PCP Internal Medicine; Visit Provider Podiatrist
DX: M19.071 Primary osteoarthritis, right ankle and foot (principal); M19.072 Primary osteoarthritis, left ankle and foot; Z98.890 Other specified postprocedural states
CPT/HCPCS: 73630